=== PATIENT | female | born 1940 | race Asian ===

== ENCOUNTER 2016-12-17 18:28 | Emergency (ER) | payer MEDICARE, MEDICAID ==
[~2016-12-17] VITALS: Ht 157.5 cm; Wt 63.2 kg
[2016-12-17] MEDS ORDERED: METF500T4 PO (19:42)
[2016-12-17] MEDS ORDERED: FOSI1TAB PO (19:42)
[2016-12-17] MEDS ORDERED: CETI5TAB3 PO (19:42)
[2016-12-17] MEDS ORDERED: ASPI81TA50 PO (19:42)
[2016-12-17] MEDS ORDERED: COLC0.6T37 PO (19:42)
[2016-12-17] MEDS ORDERED: GLIP-33 PO (19:42)
[2016-12-17] MEDS ORDERED: FOSI20TA PO (19:42)
[2016-12-17] MEDS ORDERED: ATEN100T PO (19:42)
[2016-12-17] MEDS ORDERED: AMLO10TA2 PO (19:42)
[2016-12-17 19:53] LABS: HEMATOCRIT 40.6 % (34.6-47.8); HEMOGLOBIN 13.8 g/dL (11.7-16.4); WHITE BLOOD COUNT 9.8 x10^3/uL (3.4-10)
[2016-12-17 20:03] LABS: BLOOD UREA NITROGEN 16 mg/dL (7-18)
[2016-12-17] MEDS ORDERED: COLCHICINE 0.6 MG TABLET PO ONE ×2 (20:30→22:30)
[2016-12-17] MEDS ORDERED: HYDROcodone/APAP 5/325 TABLET PO ONE (21:30)
[2016-12-17] MEDS ORDERED: CEPHALEXIN 500 MG CAPSULE ONE (22:28)
[2016-12-17] MEDS ORDERED: HYDROcodone/APAP 5/325 TABLET ONE (22:29)
[2016-12-17] MEDS ORDERED: CEPHALEXIN 500 MG CAPSULE PO ONE (22:30)
[2016-12-17 22:36] VITALS: BP 156/74
== END 2016-12-17 23:26 | disposition home or self-care (01) ==
LOC: ED 21:01
DX: M13.141 Monoarthritis, not elsewhere classified, right hand (principal); M10.9 Gout, unspecified; I10 Essential (primary) hypertension; E11.9 Type 2 diabetes mellitus without complications
CPT/HCPCS: 36415; 80048; 82040; 84550; 85025; 85651; 99285